=== PATIENT | male | born 1980 | race Caucasian/White ===

== ENCOUNTER 2018-02-16 20:09 | Inpatient (IN) | payer OTHER ==
[2018-02-16 20:58] VITALS: BMI 28.8
--- NOTE | 2018-02-17 00:03 | HP ---
COWS - Scale Resting Pulse: 0= MI 80 or Below Sweatin=Flushed/Facial Moisture Restless Observation: 0= Sits Still Pupil Size: 0= Normal to Room Light Bone or Joint Aches: 4=Acute Joint/Muscle Pain Runny Nose/ Eye Tearin= Runny Nose/Eyes GI Upset > 30mins: 3= Vomiting/Diarrhea (vomiting x 2, diarrhea x 2) Tremor Observation: 2= Slight Tremor Visible Yawning Observation: 1= 1-2x During Session Anxiety or Irritability: 4=Extreme Anxiety Goose Flesh Skin: 0=Smooth Skin COWS Score: 18 Admission [facility] Chief Complaint: Heroin withdrawal symptoms Allergies/Adverse Reactions: Allergies Allergy/AdvReac Type Severity Reaction Status Date / Time divalproex sodium Allergy Verified 02/16/18 23:47 [From Depakote] haloperidol [From Haldol] Allergy Verified 02/16/18 23:47 History of Present Illness: 37 years old male with 10 years of heroin dependence is seeking admission to detox. Patient denies prior detoxification and this is his first admission to [facility]. He has medical history of asthma, seizures, anxiety and depression. He reports that was on methadone program at [facility] but has not been able get his methadone because he relapsed. He was on Methadone 80mg tablet oral and last day medicated was seven days ago. Dose is yet to be confirmed by the nurse and patient states that he was told that he will need to go back to his program for re-evaluation. He reports suicide attempts, last in December 2016 but denies suicidal ideation at this time. Exam Limitations: No Limitations - Ebola screening Have you traveled outside of the country in the last 21 days: No Have you had contact with anyone from an Ebola affected area: No Have you been sick,other than usual withdrawal symptoms: No Do you have a fever: No - Review of Systems Constitutional: No Symptoms Reported, Malaise, Night Sweats, Changes in sleep EENT: reports: Nose Congestion Respiratory: reports: No Symptoms reported Cardiac: reports: No Symptoms Reported GI: reports: Diarrhea, Nausea, Poor Appetite, Poor Fluid Intake, Vomiting : reports: No Symptoms Reported Musculoskeletal: reports: Back Pain, Muscle Pain, Muscle Weakness Integumentary: reports: Dryness, Flushing Neuro: reports: Headache, Tingling, Tremors Endocrine: reports: No Symptoms Reported Hematology: reports: No Symptoms Reported Psychiatric: reports: Orientated x3, Anxious, Depressed Other Systems: Reviewed and Negative Patient History - Patient Medical History Hx Anemia: No Hx Asthma: Yes (Qvar and Albuterol) Hx Chronic Obstructive Pulmonary Disease (COPD): No Hx Cancer: No Hx Cardiac Disorders: No Hx Congestive Heart Failure: No Hx Hypertension: No Hx Hypercholesterolemia: No Hx Pacemaker: No HX Cerebrovascular Accident: No Hx Seizures: Yes (Kepra) Hx Diabetes: No Hx Gastrointestinal Disorders: No Hx Liver Disease: No Hx Genitourinary Disorders: No Hx Sexually Transmitted Disorders: No Hx Renal Disease (ESRD): No Hx Thyroid Disease: No Hx Human Immunodeficiency Virus (HIV): No (Negative 2016) Hx Hepatitis C: No Hx Depression: Yes (Remeron) Hx Suicide Attempt: Yes (Attempt 2016, denies suicidal ideation at tghis time) Hx Bipolar Disorder: Yes ([place]) Hx Schizophrenia: Yes Other Medical History: Anxeity - Patient Surgical History Past Surgical History: No - PPD History Previous Implant?: No (PPD POSITIVE) Implanted On Prior R Admission?: No PPD to be Administered?: No - Reproductive History Patient is a Female of Child Bearing Age (11 -55 yrs old): No (MALE) - Smoking Cessation Smoking history: Current every day smoker Have you smoked in the past 12 months: Yes Aproximately how many cigarettes per day: 20 Hx Chewing Tobacco Use: No Initiated information on smoking cessation: Yes 'Breaking Loose' booklet given: 02/17/18 - Substance & Tx. History Hx Alcohol Use: No Hx Substance Use: Yes Substance Use Type: Cocaine, Heroin, Marijuana Hx Substance Use Treatment: No - Substances Abused Heroin Route: SNIFF Frequency: Daily Amount used: 1 BUNDLE Age of first use: 20 Date of Last Use: 02/16/18 Cocaine Route: Smoking Frequency: Daily Amount used: $100 Age of first use: 18 Date of Last Use: 02/15/18 Marijuana/Hashish Route: Smoking Frequency: Daily Amount used: $10 Age of first use: 14 Date of Last Use: 02/15/18 Family Disease History - Family Disease History Family Disease History: Diabetes: Grandparent, Brother Admission Physical Exam BHS - Vital Signs Vital Signs: Vital Signs - 24 hr 02/16/18 20:43 Temperature 98.7 F Pulse Rate 64 Respiratory 18 Rate Blood Pressure 133/70 - Physical General Appearance: Yes: Moderate Distress HEENTM: Yes: EOMI, Normal ENT Inspection, Normal Voice, JHONNY, Nasal Congestion Respiratory: Yes: Lungs Clear, Normal Breath Sounds, No Respiratory Distress Neck: Yes: Supple Breast: Yes: Breast Exam Deferred Cardiology: Yes: Regular Rhythm, Regular Rate, S1, S2 Abdominal: Yes: Normal Bowel Sounds, Soft Genitourinary: Yes: Within Normal Limits Back: Yes: Normal Inspection Musculoskeletal: Yes: Within Normal Limits Extremities: Yes: Normal Inspection, Normal Range of Motion Neurological: Yes: Alert, Normal Mood/Affect Integumentary: Yes: Warm - Diagnostic (1) Opioid dependence with withdrawal Current Visit: Yes Status: Chronic (2) Seizure Current Visit: Yes Status: Chronic (3) Depression Current Visit: Yes Status: Chronic Qualifiers: Depression Type: unspecified Qualified Code(s): F32.9 - Major depressive disorder, single episode, unspecified (4) Asthma Current Visit: Yes Status: Chronic Qualifiers: Asthma complication type: unspecified (5) Anxiety Current Visit: Yes Status: Chronic (6) Nicotine dependence Current Visit: Yes Status: Chronic Cleared for Admission [facility] - Detox or Rehab [facility] Level of Care: Medically Managed Detox Regimen/Protocol: Methadone [facility] Breath Alcohol Content Breath Alcohol Content: 0 Urine Drug Screen - Results Drug Screen Negative: No Urine Drug Screen Results: THC-Marijuana, JUDIT-Cocaine, OPI-Opiates, AMP- Amphetamines, MTD-Methadone
[2018-02-17] MEDS ORDERED: IBUPROFEN 400 MG TABLET (FP) PO PRN (00:24)
[2018-02-17] MEDS ORDERED: METHADONE HCL 10 MG TABLET (FOR DETOX USE ONLY) PO ONE ×3 (00:24→23:00)
[2018-02-17] MEDS ORDERED: MAGNESIUM CITRATE 300 ML BOTTLE PO PRN (00:24)
[2018-02-17] MEDS ORDERED: MENTHOL/PHENOL 1 EACH UD MM PRN (00:24)
[2018-02-17] MEDS ORDERED: P-EPHED 60MG/TRIPROLIDI 2.5MG TABLET PO PRN (00:24)
[2018-02-17] MEDS ORDERED: guaiFENesin/D-METHORPHAN HB 10 ML UNIT-DOSE CUPS PO PRN (00:24)
[2018-02-17] MEDS ORDERED: MAG HYDROX/AL HYDROX/SIMETH 30 ML UNIT-DOSE CUP PO PRN (00:24)
[2018-02-17] MEDS ORDERED: ACETAMINOPHEN 325 MG TABLET (FP) PO PRN (00:24)
[2018-02-17] MEDS ORDERED: LOPERAMIDE HCL 2 MG CAPSULE PO PRN (00:24)
[2018-02-17] MEDS ORDERED: MAGNESIUM HYDROX 2400MG/30ML ORAL SUSPENSION 30 ML CUP PO PRN (00:24)
[2018-02-17] MEDS ORDERED: NICOTINE POLACRILEX 2 MG GUM BC PRN (00:28)
[2018-02-17] MEDS: diazePAM 5 MG TABLET PO PRN ×3 (01:23→22:14)
[2018-02-17] MEDS: PRENATAL VITAMINS W/ FOLIC ACID TABLET (FP) PO SCH (11:10)
[2018-02-17] MEDS: NICOTINE 14 MG/24 HOURS TOPICAL PATCH TD SCH (11:11)
--- NOTE | 2018-02-17 11:25 | PN ---
BHS Progress Note Note: PT ADMITTED EARLIER TODAY. APPEARS TIRED/SLUGGISH . OOB ENGAGED IN UNIT ROUTINE WITH NO ACUTE DISTRESS. Vital Signs Temperature 96.1 F L 02/17/18 09:20 Pulse Rate 59 L 02/17/18 09:20 Respiratory Rate 18 02/17/18 09:20 Blood Pressure 112/67 02/17/18 09:20 O2 Sat by Pulse Oximetry (%) LABS PENDING CONTINUE DETOX.
--- NOTE | 2018-02-17 11:30 | EKG ---
Test Reason : Blood Pressure : / mmHG Vent. Rate : 048 BPM Atrial Rate : 048 BPM P-R Int : 156 ms QRS Dur : 090 ms QT Int : 438 ms P-R-T Axes : 044 036 018 degrees QTc Int : 391 ms SINUS BRADYCARDIA OTHERWISE NORMAL ECG NO PREVIOUS ECGS AVAILABLE Confirmed by ALEXANDER HAM MD ([id number]) on 02/17/2018 11:30:11 AM Referred By: Confirmed By:ALEXANDER HAM MD
--- NOTE | 2018-02-17 12:14 | CONSULT ---
[facility] Psychiatric Consult - Data Date of interview: 02/17/18 Admission source: [facility] Identifying data: Patient is a 37 year old single male, without kids, unemployed (not receiving financial assistance), and currently homeless. This is patient's first admission to detox. Pt. admitted to for opiate, cocaine, and cannabis dependence. Substance Abuse History: Following information confirmed with Mr. Willingham: Smoking Cessation. Smoking history: Current every day smoker. Have you smoked in the past 12 months: Yes. Aproximately how many cigarettes per day: 20. Hx Chewing Tobacco Use: No. Initiated information on smoking cessation: Yes. ' Breaking Loose' booklet given: 02/17/18. - Substance & Tx. History. Hx Alcohol Use: No. Hx Substance Use: Yes. Substance Use Type: Cocaine, Heroin, Marijuana. Hx Substance Use Treatment: No. - Substances Abused. Heroin. Route: SNIFF. Frequency: Daily. Amount used: 1 BUNDLE. Age of first use: 20. Date of Last Use: 02/16/18. Cocaine. Route: Smoking. Frequency: Daily. Amount used: $100. Age of first use: 18. Date of Last Use: 02/15/18. Marijuana/Hashish. Route: Smoking. Frequency: Daily. Amount used: $10. Age of first use: 14. Date of Last Use: 02/15/18 Medical History: Asthma, Seizures Psychiatric History: Patient reports psychiatric hospitalizations at [facility], [facility], and [facility]. Patient was incarcerated from July 2017 -February 07 for violating his parole. States he was prescribed lithium 600mg BID + Mirtzapine 45mg. Reports last dose was taken approximately seven days ago after he relapse and begun to reuse drugs. Patient reports h/o bipolar disorder. States he was once diagnosed with schizophrenia. Patient reports multiple suicide attempts, but reports last year's suicide attempt of hanging self [place] was the most severe because he had to be resuscitated. Pt. appears depressed but stated he is motivated to get better but needs to overcome the detox process. Patient currently denies suicidal and homicidal ideation. Physical/Sexual Abuse/Trauma History: Denies. Mental Status Exam - Mental Status Exam Alert and Oriented to: Time, Place, Person Cognitive Function: Good Patient Appearance: Unkempt Mood: Withdrawn, Euthymic Affect: Mood Congruent Patient Behavior: Fatigued, Cooperative Speech Pattern: Delayed Voice Loudness: Moderately Soft/Quiet Thought Process: Intact, Goal Oriented Thought Disorder: Not Present Hallucinations: Denies Suicidal Ideation: Denies Homicidal Ideation: Denies Insight/Judgement: Poor Sleep: Fair Appetite: Fair Muscle strength/Tone: Normal Gait/Station: Normal Psychiatric Findings - Problem List ([place] 1, 2,3) (1) Cocaine dependence Current Visit: Yes Status: Acute (2) Nicotine dependence Current Visit: Yes Status: Chronic (3) Opioid dependence with withdrawal Current Visit: Yes Status: Acute (4) Substance induced mood disorder Current Visit: Yes Status: Acute (5) Bipolar disorder Current Visit: Yes Status: Suspected Comment: Self reports. - Initial Treatment Plan Initial Treatment Plan: Psychoeducation provided. Detoxification in progress. [place] level ordered. [place] 300mg BID + Mirtzapine 15mg qhs ordered. Benefits and side effects discussed. Verbal consent given. Labs still pending. Will hold lithium until labs are posted. Will continue to monitor.
[2018-02-17] MEDS ORDERED: MELATONIN 5 MG TABLETS PO PRN (22:00)
[2018-02-17] MEDS: THIAMINE HCL 100 MG TABLET (FP) PO SCH (22:13)
[2018-02-17] MEDS: MIRTAZAPINE 15 MG TABLET (FP) PO SCH (22:13)
[2018-02-18 09:49] LABS: HEMATOCRIT 36.7 % (35.4-49); HEMOGLOBIN 12.9 GM/dL (11.7-16.9); MCH 31.4 pg (25.7-33.7); MEAN CELL VOLUME 89.6 fl (80-96); MEAN PLT VOLUME 7.4 fl (7.5-11.1); PLATELET COUNT 211 K/MM3 (134-434); RDW 14.6 % (11.9-15.9); WHITE BLOOD COUNT 5.6 K/mm3 (4.0-10.0)
[2018-02-18] MEDS ORDERED: METHADONE HCL 10 MG TABLET (FOR DETOX USE ONLY) PO ONE (10:00)
[2018-02-18 10:51] LABS: CHLORIDE 109 mmol/L (98-107); POTASSIUM 3.4 mmol/L (3.5-5.1); SODIUM 143 mmol/L (136-145)
[2018-02-18] MEDS ORDERED: ALBUTEROL SO4 18 GM HFA INHALER IH PRN (10:52)
[2018-02-18 11:01] LABS: ALBUMIN 3.5 g/dl (3.4-5.0); ALK PHOS 64 U/L (45-117); ANION GAP 6 (8-16); BILIRUBIN,TOTAL 0.5 mg/dL (0.2-1.0); BLOOD UREA NITROGEN 9 mg/dL (7-18); CALCIUM 8.7 mg/dL (8.5-10.1); CO2 28 mmol/L (21-32); CREATININE 0.7 mg/dL (0.7-1.3); GLUCOSE,RANDOM 90 mg/dL (74-106); SGOT/AST 16 U/L (15-37); SGPT/ALT 13 U/L (12-78); TOT PROT 6.6 g/dl (6.4-8.2)
[2018-02-18] MEDS: diazePAM 5 MG TABLET PO PRN ×3 (11:24→22:14)
[2018-02-18] MEDS: carBAMazepine 200 MG TABLET PO SCH ×2 (11:24→22:13)
[2018-02-18] MEDS: PRENATAL VITAMINS W/ FOLIC ACID TABLET (FP) PO SCH (11:24)
[2018-02-18] MEDS: NICOTINE 14 MG/24 HOURS TOPICAL PATCH TD SCH (11:25)
[2018-02-18] MEDS ORDERED: levETIRAcetam 250 MG TABLET (FP) PO SCH (11:30)
[2018-02-18] MEDS: GABAPENTIN 400 MG CAPSULE (FP) PO SCH ×2 (12:48→22:14)
--- NOTE | 2018-02-18 13:11 | PN ---
BHS COWS - Scale Resting Pulse: 0= [place] 80 or Below Sweatin=Flushed/Facial Moisture Restless Observation: 3= Extraneous Movement Pupil Size: 2= Moderately Dilated Bone or Joint Aches: 1= Mild Discomfort Runny Nose/ Eye Tearin= Nasal Congestion GI Upset > 30mins: 1= Stomach Cramp Tremor Observation of Outstretched Hands: 2= Slight Tremor Visible Yawning Observation: 0= None Anxiety or Irritability: 2=Irritable/Anxious Goose Flesh Skin: 0=Smooth Skin COWS Score: 14 BHS Progress Note (SOAP) Subjective: IRRITABILITY,SWEATS,ANXIETY,AGITATIONS. PT IS OOB AND AMBULATING WITH STEADY GAIT. PT BECAME AGITATED TODAY STATING HE ISNOT GETTING ALL HIS MEDICATIONS INCLUDING HIGHER DOSE OF METHADONE--I WAS ON 80 MG". PT REPORTS HE WAS AT [facility] AND D/C'D ON 02/07/18. PTWAS REFERRED TO [facility] TO CONTINUE DRUG TX/MMTP BUT DID NOT SHOW UP. PT WAS ACTIVELY USING HEROIN,COCAINE AND MARIJUANA PER INTAKE ASSESSMENT THEREAFTER AND CAME INTO DETOX. SPOKE WITH THE ASST. DIRECTOR OF ADDICTION MEDICINE AT [facility] MS CLAY CARVER(PHONE #: [phone]) RE: PT'S MEDICATIONS WHILE THERE AND UPON DISCHARGE. MS CARVER REPORTS PT WAS WITH THEM FROM 08/01/17 TO 02/07/18. MEDICATIONS: LITHIUM ER 450 MG , TOTAL OF 900 MG AT BEDTIME REMERON 30 MG AT BEDTIME KEPPRA 500 MG TABS PO TWICE A DAY TEGRETOL 200MG TABS, 400MG TWICE A DAY GABAPENTIN 300 MG, TOTAL 1200 MG TWICE A DAY REQUESTED FOR A FAX OF MED LIST BUT UNAVAILABLE AT THIS TIME. ABOVE INFORMATION DISCUSSED WITH DR. ARELLANO RE: PSYCH MEDS. Objective: 02/18/18 13:04 Vital Signs Temperature 95.5 F L 02/18/18 10:04 Pulse Rate 64 02/18/18 10:04 Respiratory Rate 18 02/18/18 10:04 Blood Pressure 101/67 02/18/18 10:04 O2 Sat by Pulse Oximetry (%) Laboratory Tests 02/18/18 02/18/18 02/18/18 07:30 07:30 07:30 WBC 5.6 RBC 4.10 Hgb 12.9 Hct 36.7 MCV 89.6 MCH 31.4 MCHC 35.0 RDW 14.6 Plt Count 211 MPV 7.4 L Sodium 143 Potassium 3.4 L Chloride 109 H Carbon Dioxide 28 Anion Gap 6 L BUN 9 Creatinine 0.7 Creat Clearance w eGFR > 60 Random Glucose 90 Calcium 8.7 Total Bilirubin 0.5 AST 16 ALT 13 Alkaline Phosphatase 64 Total Protein 6.6 Albumin 3.5 RPR Titer Nonreactive Assessment: 02/18/18 13:05 WITHDRAWAL SX Plan: CONTINUE DETOX REOREDERED SEIZURE MEDICATIONS PT ENCOURAGED TO CONTINUE/COMPLETE DETOX TX AND FOLLOW UP AT [facility] FOR AFTERCARE.
--- NOTE | 2018-02-18 13:54 | PN ---
Psychiatric Progress Note Vital Signs: Vital Signs Period Temp Pulse Resp BP Sys/Mead Pulse Ox Last 24 Hr 95.5 F-98.2 F 49-72 - 99-124/55-82 Date of Session: 02/18/18 Chief Complaint:: " I need my medications." HPI: Case of a 37 y/o male admitted to [address] [place] [address] 02/16/18 for detoxification treatment.Substances of abuse : opioid,cocaine and cannabis.Psychiatric follow-up is sought for verification of medications prescribed during patient's incarceration at [facility] (just released). ROS: Mild sedation.Patient is ambulatory.Able to converse coherently with interviewer. Current Medications: Active Medications Generic Name Dose Route Start Last Admin Trade Name Freq PRN Reason Stop Dose Admin Acetaminophen 650 mg 02/17/18 00:24 Tylenol - PO Q4H PRN FEVER Al Hydroxide/Mg Hydroxide 30 ml 02/17/18 00:24 Mylanta Oral Suspension - PO Q6H PRN DYSPEPSIA Albuterol Sulfate 2 puff 02/18/18 10:52 Ventolin Hfa Inhaler - IH QID PRN ASTHMA Carbamazepine 400 mg 02/18/18 11:30 02/18/18 11:24 Tegretol - PO 400 mg BID FLORY Administration Diazepam 10 mg 02/17/18 00:24 02/18/18 11:24 Valium - PO 02/20/18 00:23 10 mg Q4H PRN Administration WITHDRAWAL(CONT SUBST) Eucalyptus/Menthol/Phenol/Sorbitol 1 each 02/17/18 00:24 Cepastat Lozenge - MM Q4H PRN SORE THROAT Gabapentin 1,200 mg 02/18/18 12:45 02/18/18 12:48 Neurontin - PO 1,200 mg BID FLORY Administration Guaifenesin 10 ml 02/17/18 00:24 Robitussin Dm - PO Q6H PRN COUGH Ibuprofen 400 mg 02/17/18 00:24 Motrin - PO Q6H PRN PAIN LEVEL 4-6 Levetiracetam 500 mg 02/18/18 22:00 Keppra - PO BID FLORY Loperamide HCl 4 mg 02/17/18 00:24 Imodium - PO Q6H PRN DIARRHEA Magnesium Citrate 300 ml 02/17/18 00:24 Citroma - PO Q48H PRN CONSTIPATION Magnesium Hydroxide 30 ml 02/17/18 00:24 Milk Of Magnesia - PO DAILY PRN CONSTIPATION Melatonin 5 mg 02/17/18 22:00 Melatonin PO HS PRN INSOMNIA Methadone HCl 15 mg 02/19/18 10:00 Dolophine - PO 02/19/18 10:01 ONCE ONE Methadone HCl 5 mg 02/22/18 06:00 Dolophine - PO 02/22/18 06:01 ONCE@0600 ONE Methadone HCl 15 mg 02/20/18 10:00 Dolophine - PO 02/20/18 10:01 ONCE ONE Methadone HCl 10 mg 02/21/18 10:00 02/17/18 11:11 Dolophine - PO 02/21/18 10:01 10 mg ONCE ONE Administration Mirtazapine 15 mg 02/17/18 22:00 02/17/18 22:13 Remeron - PO 15 mg HS FLORY Administration Nicotine 14 mg 02/17/18 10:00 02/18/18 11:25 Nicoderm Patch - TD Not Given DAILY FLORY Nicotine Polacrilex 2 mg 02/17/18 00:28 Nicorette Gum - BC Q2H PRN NICOTINE REPLACEMENT RX Multivit/Folic Acid/Iron 1 tab 02/17/18 10:00 02/18/18 11:24 Vitamins (Sjr) - PO 1 tab DAILY FLORY Administration Pseudoephedrine/Triprolidine 1 combo 02/17/18 00:24 Actifed - PO TID PRN NASAL CONGESTION Thiamine HCl 100 mg 02/17/18 22:00 02/17/18 22:13 Vitamin B1 - PO 100 mg HS FLORY Administration Medication(s) Change(s): Medications reviewed.Patient is on a combination of three anticonvulsants (gabapentin,levetiracetam,carbamazepine).Mr Willingham has also reported to be on lithium and remeron.Shipper contacted [facility] at .Spoke to Chasity Guevara.Re-directed to General Operations .Shipper reached Dr Ugalde, psychiatry on duty.He confirmed that Mr Willingham has been discharged from [facility] on a regimen consisting of : remeron 30 mg po hs + lithium ER 900 mg po hs + tegretol 400 mg po bid + keppra 500 mg po bid + gabapentin 1200 mg po bid. Current Side Effect: No Lab tests ordered: Yes (tegretol,keppra and lithium levels) Lab tests reviewed: Yes Provider note:: Chart reviewed.Psychiatric nurse practitioner's note (Yue ) : appreciated.Case discussed, in the morning, with the medical nurse practitioner Anton.Met with the patient at bedside.Mr Willingham is found sitting in bed,finishing his lunch.Patient is noted as calm,well related, conversant and cooperative.Appears somewhat tired." I slept much of the morning.That is why I appeared tired to you.I am fine." Sedation remains mild and does not hamper ambulation or communication.Mr Willingham has given his verbal authorization to this insurance writer to contact his psychiatrist at [facility] for information about his medications.He is currently on his familiar regimen and satisfied with this plan of care. Total face to face time:: 35 Mental Status Exam - Mental Status Exam Alert and Oriented to: Time, Place, Person Cognitive Function: Grossly Intact Patient Appearance: Well Groomed Mood: Withdrawn (neutral) Affect: Mood Congruent Patient Behavior: Fatigued, Appropriate, Cooperative Speech Pattern: Clear, Appropriate Voice Loudness: Normal Thought Process: Goal Oriented Thought Disorder: Not Present Hallucinations: Denies Suicidal Ideation: Denies Homicidal Ideation: Denies Insight/Judgement: Fair Sleep: Poorly, Difficulty falling asleep Appetite: Good Muscle strength/Tone: Normal Gait/Station: Normal Psychiatric Treatment Plan - Problem List (1) Opioid dependence with withdrawal Current Visit: Yes (2) Cocaine dependence Current Visit: Yes Qualifiers: Substance use status: uncomplicated Qualified Code(s): F14.20 - Cocaine dependence, uncomplicated (3) Marihuana dependence Current Visit: Yes (4) Nicotine dependence Current Visit: Yes Qualifiers: Nicotine product type: cigarettes Substance use status: in withdrawal Qualified Code(s): F17.213 - Nicotine dependence, cigarettes, with withdrawal (5) Substance induced mood disorder Current Visit: Yes (6) Bipolar disorder Current Visit: Yes Comment: Confirmed.On medications. (7) Insomnia Current Visit: Yes
[2018-02-18] MEDS ORDERED: NICOTINE 14 MG/24 HOURS TOPICAL PATCH TD SCH (17:00)
[2018-02-18] MEDS ORDERED: levETIRAcetam 500 MG TABLET (FP) PO SCH (22:00)
[2018-02-18 22:11] VITALS: BP 118/77; PULSE 68; TEMP 95.8
[2018-02-18] MEDS: THIAMINE HCL 100 MG TABLET (FP) PO SCH (22:13)
[2018-02-18] MEDS: MIRTAZAPINE 15 MG TABLET (FP) PO SCH (22:13)
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
--- NOTE | 2018-02-18 23:12 | DS ---
[facility] Detox Discharge Summary Admission Date: 02/16/18 Discharge Date: 02/18/18 - History Present History: Opioid Dependence Additional Comments: Laboratory Tests 02/18/18 02/18/18 02/18/18 07:30 07:30 07:30 WBC 5.6 RBC 4.10 Hgb 12.9 Hct 36.7 MCV 89.6 MCH 31.4 MCHC 35.0 RDW 14.6 Plt Count 211 MPV 7.4 L Sodium 143 Potassium 3.4 L Chloride 109 H Carbon Dioxide 28 Anion Gap 6 L BUN 9 Creatinine 0.7 Creat Clearance w eGFR > 60 Random Glucose 90 Calcium 8.7 Total Bilirubin 0.5 AST 16 ALT 13 Alkaline Phosphatase 64 Total Protein 6.6 Albumin 3.5 Carbamazepine Carmen RPR Titer Nonreactive 02/18/18 02/18/18 07:30 10:50 WBC RBC Hgb Hct MCV MCH MCHC RDW Plt Count MPV Sodium Potassium Chloride Carbon Dioxide Anion Gap BUN Creatinine Creat Clearance w eGFR Random Glucose Calcium Total Bilirubin AST ALT Alkaline Phosphatase Total Protein Albumin Carbamazepine < 0.5 L* Carmen 0 L RPR Titer Pertinent Past History: BIPOLAR NICOTINE DEP ANXIETY ASTHMA SEIZURE D/O - Physical Exam Results Vital Signs: Vital Signs Temperature 95.8 F L 02/18/18 22:10 Pulse Rate 68 02/18/18 22:10 Respiratory Rate 18 02/18/18 22:10 Blood Pressure 118/77 02/18/18 22:10 O2 Sat by Pulse Oximetry (%) Pertinent Admission Physical Exam Findings: WITHDRAWAL SX'S - Treatment Hospital Course: Discharged Condition Good Patient has Accepted a Rehab Referral to: REFERRED TO [facility] - Medication Discharge Medications: Ambulatory Orders Albuterol Sulfate Inhaler - 2 puff IH QID PRN 02/17/18 Keppra 500 mg PO BID 02/17/18 Mirtazapine [Remeron [DO NOT STOCK]] 45 mg PO HS 02/17/18 Tegretol - 400 mg PO BID 02/17/18 Gabapentin 1,200 mg PO BID 02/18/18 Carmen Carbonate [Eskalith -] 450 mg PO HS 02/18/18 - Diagnosis (1) Cocaine dependence Status: Acute Qualifiers: Substance use status: uncomplicated Qualified Code(s): F14.20 - Cocaine dependence, uncomplicated (2) Insomnia Status: Acute (3) Nicotine dependence Status: Acute Qualifiers: Nicotine product type: cigarettes Substance use status: in withdrawal Qualified Code(s): F17.213 - Nicotine dependence, cigarettes, with withdrawal (4) Opioid dependence with withdrawal Status: Acute (5) Substance induced mood disorder Status: Acute (6) Anxiety Status: Chronic (7) Asthma Status: Chronic Qualifiers: Asthma severity: mild Asthma persistence: unspecified Asthma complication type: uncomplicated Qualified Code(s): J45.909 - Unspecified asthma, uncomplicated (8) Depression Status: Chronic Qualifiers: Depression Type: unspecified Qualified Code(s): F32.9 - Major depressive disorder, single episode, unspecified (9) Seizure Status: Chronic (10) Bipolar disorder Status: Suspected - AMA Did Patient Leave Against Medical Advice: No (SENT TO [facility])
[2018-02-19] MEDS ORDERED: METHADONE HCL 5 MG TABLET (FOR DETOX USE ONLY) PO ONE (10:00)
[2018-02-20] MEDS ORDERED: METHADONE HCL 5 MG TABLET (FOR DETOX USE ONLY) PO ONE (10:00)
[2018-02-21] MEDS ORDERED: METHADONE HCL 10 MG TABLET (FOR DETOX USE ONLY) PO ONE (10:00)
[2018-02-22] MEDS ORDERED: METHADONE HCL 5 MG TABLET (FOR DETOX USE ONLY) PO ONE (06:00)
== END 2018-02-18 23:04 | disposition left against medical advice (07) | DRG 770 ==
LOC: YASAS 20:09 → Y3N 22:56
PROVIDERS: ADMIT Internal Medicine; ATTEND Internal Medicine
PROC: HZ2ZZZZ Detoxification Services for Substance Abuse Treatment (ICD-10-PCS; principal; 2018-02-16)
DX: F11.23 Opioid dependence with withdrawal (principal); F14.20 Cocaine dependence, uncomplicated; F12.20 Cannabis dependence, uncomplicated; F17.210 Nicotine dependence, cigarettes, uncomplicated; F19.24 Other psychoactive substance dependence with psychoactive substance-induced mood disorder; F31.9 Bipolar disorder, unspecified; F41.9 Anxiety disorder, unspecified; G40.909 Epilepsy, unspecified, not intractable, without status epilepticus; G47.00 Insomnia, unspecified; J45.909 Unspecified asthma, uncomplicated; Z91.5 Personal history of self-harm
CPT/HCPCS: 36415; 71046-TC-FY; 80053; 80156; 80178; 85027; 86593; 93005; 93010

== ENCOUNTER 2019-01-11 18:54 | Inpatient (IN) | payer OTHER ==
[2019-01-11 19:16] VITALS: BMI 25.0
--- NOTE | 2019-01-11 22:02 | HP ---
COWS - Scale Resting Pulse: 0= [place] 80 or Below Sweatin=Flushed/Facial Moisture Restless Observation: 1= Difficult to Sit Still Pupil Size: 0= Normal to Room Light Bone or Joint Aches: 4=Acute Joint/Muscle Pain Runny Nose/ Eye Tearin= Runny Nose/Eyes GI Upset > 30mins: 3= Vomiting/Diarrhea (vomiting x 2, no diarrhea) Tremor Observation: 4= Gross Tremor/Twitching Yawning Observation: 0= None Anxiety or Irritability: 2=Irritable/Anxious Goose Flesh Skin: 0=Smooth Skin COWS Score: 18 CIWA Score - Admission Criteria OASAS Guidelines: Admission for Medically Managed Detox: Requires at least one of the followin. CIWA greater than 12 2. Seizures within the past 24 hours 3. Delirium tremens within the past 24 hours 4. Hallucinations within the past 24 hours 5. Acute intervention needed for co occurring medical disorder 6. Acute intervention needed for co occurring psychiatric disorder 7. Severe withdrawal that cannot be handled at a lower level of care (continued vomiting, continued diarrhea, abnormal vital signs) requiring intravenous medication and/or fluids 8. Admission ROS [facility] Chief Complaint: Heroin withdrawal symptoms Allergies/Adverse Reactions: Allergies Allergy/AdvReac Type Severity Reaction Status Date / Time divalproex sodium Allergy Verified 01/11/19 21:30 [From Depakote] haloperidol [From Haldol] Allergy Verified 01/11/19 21:30 History of Present Illness: 38 years old male with a long of heroin dependence is seeking admission to detox. He has medical history of asthma, seizures, anxiety and depression. He reports that he is on 60mg Methadone at [facility]. Dose is yet to be confirmed by the nurse. He reports suicide attempts, last in December 2016 but denies suicidal ideation at this time. Exam Limitations: No Limitations - Ebola screening Have you traveled outside of the country in the last 21 days: No Have you had contact with anyone from an Ebola affected area: No Have you been sick,other than usual withdrawal symptoms: No Do you have a fever: No - Review of Systems Constitutional: Chills, Loss of Appetite, Malaise, Night Sweats, Changes in sleep EENT: reports: Sinus Pressure Respiratory: reports: No Symptoms reported Cardiac: reports: No Symptoms Reported GI: reports: Poor Appetite, Poor Fluid Intake, Vomiting, Abdominal cramping : reports: No Symptoms Reported Musculoskeletal: reports: Back Pain, Muscle Pain Integumentary: reports: Dryness, Flushing Neuro: reports: Tremors Endocrine: reports: No Symptoms Reported Hematology: reports: No Symptoms Reported Psychiatric: reports: Anxious, Depressed Other Systems: Reviewed and Negative Patient History - Patient Medical History Hx Anemia: No Hx Asthma: Yes (Qvar and Albuterol) Hx Chronic Obstructive Pulmonary Disease (COPD): No Hx Cancer: No Hx Cardiac Disorders: No Hx Congestive Heart Failure: No Hx Hypertension: No Hx Hypercholesterolemia: No Hx Pacemaker: No HX Cerebrovascular Accident: No Hx Seizures: Yes ([place]) Hx Diabetes: No Hx Gastrointestinal Disorders: No Hx Liver Disease: No Hx Genitourinary Disorders: No Hx Sexually Transmitted Disorders: No Hx Renal Disease (ESRD): No Hx Thyroid Disease: No Hx Human Immunodeficiency Virus (HIV): No (Negative 2016) Hx Hepatitis C: No Hx Depression: Yes ([place]) Hx Suicide Attempt: Yes (Attempt 2016, denies suicidal ideation at this time) Hx Bipolar Disorder: Yes ([place]) Hx Schizophrenia: Yes - Patient Surgical History Past Surgical History: No - PPD History Previous Implant?: Yes Documented Results: Positive w/proof Implanted On Prior [facility] Admission?: Yes PPD to be Administered?: Yes - Reproductive History Patient is a Female of Child Bearing Age (11 -55 yrs old): No (Male) - Smoking Cessation Smoking history: Current every day smoker Have you smoked in the past 12 months: Yes Aproximately how many cigarettes per day: 20 Hx Chewing Tobacco Use: No Initiated information on smoking cessation: Yes 'Breaking Loose' booklet given: 01/11/19 - Substance & Tx. History Hx Alcohol Use: No Hx Substance Use: Yes Substance Use Type: Cocaine, Heroin, Marijuana, Opiates Hx Substance Use Treatment: Yes ([facility]) - Substances Abused Heroin Route: Injection Frequency: Daily Amount used: 15 bags Age of first use: 38 Date of Last Use: 01/10/19 Family Disease History - Family Disease History Family Disease History: Diabetes: Grandparent, Brother Admission Physical Exam BHS - Vital Signs Vital Signs: Vital Signs - 24 hr 01/11/19 19:14 Temperature 97.8 F Pulse Rate 60 Respiratory 18 Rate Blood Pressure 123/72 - Physical General Appearance: Yes: Moderate Distress, Tremorous, Irritable, Sweating, Anxious HEENTM: Yes: EOMI, Normal ENT Inspection, Normal Voice, JHONNY Respiratory: Yes: Lungs Clear, Normal Breath Sounds, No Respiratory Distress Neck: Yes: Supple Breast: Yes: Breast Exam Deferred Cardiology: Yes: Regular Rhythm, Regular Rate Abdominal: Yes: Normal Bowel Sounds Genitourinary: Yes: Within Normal Limits Back: Yes: Normal Inspection Musculoskeletal: Yes: Back pain, Muscle Pain Extremities: Yes: Tremors Neurological: Yes: Alert, Normal Mood/Affect Integumentary: Yes: Warm Lymphatic: Yes: Within Normal Limits - Diagnostic (1) Cocaine dependence Current Visit: Yes Status: Acute Qualifiers: Substance use status: uncomplicated Qualified Code(s): F14.20 - Cocaine dependence, uncomplicated (2) Marihuana dependence Current Visit: Yes Status: Chronic (3) Nicotine dependence Current Visit: Yes Status: Chronic Qualifiers: Nicotine product type: cigarettes Substance use status: uncomplicated Qualified Code(s): F17.210 - Nicotine dependence, cigarettes, uncomplicated (4) Opioid dependence with withdrawal Current Visit: Yes Status: Chronic (5) Anxiety Current Visit: Yes Status: Chronic (6) Asthma Current Visit: Yes Status: Chronic Qualifiers: Asthma severity: mild Asthma persistence: unspecified Asthma complication type: uncomplicated Qualified Code(s): J45.909 - Unspecified asthma, uncomplicated (7) Depression Current Visit: Yes Status: Chronic Qualifiers: Depression Type: unspecified Qualified Code(s): F32.9 - Major depressive disorder, single episode, unspecified (8) Seizure Current Visit: No Status: Chronic Cleared for Admission [facility] - Detox or Rehab [facility] Level of Care: Medically Managed Detox Regimen/Protocol: Librium [facility] Breath Alcohol Content Breath Alcohol Content: 0 Urine Drug Screen - Results Drug Screen Negative: No Urine Drug Screen Results: THC-Marijuana, JUDIT-Cocaine, OPI-Opiates, MTD- Methadone, FEN-Fentanyl Inpatient Rehab Admission - Rehab Decision to Admit Inpatient rehab admission?: No
[2019-01-11] MEDS ORDERED: MAG HYDROX/AL HYDROX/SIMETH 30 ML UNIT-DOSE CUP PO PRN (22:17)
[2019-01-11] MEDS ORDERED: MENTHOL/PHENOL 1 EACH UD MM PRN (22:17)
[2019-01-11] MEDS ORDERED: NICOTINE POLACRILEX 2 MG GUM BUC PRN (22:17)
[2019-01-11] MEDS ORDERED: MAGNESIUM CITRATE 300 ML BOTTLE PO PRN (22:17)
[2019-01-11] MEDS ORDERED: hydrOXYzine PAMOATE 25 MG CAPSULE (FP) PO PRN (22:17)
[2019-01-11] MEDS ORDERED: BISMUTH SUBSALICYLATE 524 MG/30 ML UD PO PRN (22:17)
[2019-01-11] MEDS ORDERED: cloNIDine HCL 0.1 MG TABLET PO PRN (22:17)
[2019-01-11] MEDS ORDERED: METHOCARBAMOL 500 MG TABLET PO PRN (22:17)
[2019-01-11] MEDS ORDERED: MAGNESIUM HYDROX 2400MG/30ML ORAL SUSPENSION 30 ML CUP PO PRN (22:17)
[2019-01-11] MEDS ORDERED: ACETAMINOPHEN 325 MG TABLET (FP) PO PRN ×2 (22:17)
[2019-01-11] MEDS ORDERED: ALBUTEROL SO4 8 GM HFA INHALER IH PRN (22:18)
[2019-01-11] MEDS ORDERED: METHADONE HCL 10 MG TABLET (FOR DETOX USE ONLY) PO ONE (23:00)
[2019-01-11] MEDS: levETIRAcetam 500 MG TABLET (FP) PO SCH (23:04)
[2019-01-12] MEDS ORDERED: METHADONE HCL 10 MG TABLET (FOR DETOX USE ONLY) PO ONE (10:00)
--- NOTE | 2019-01-12 10:21 | PN ---
BHS COWS - Scale Resting Pulse: 0= [place] 80 or Below Sweatin=Flushed/Facial Moisture Restless Observation: 1= Difficult to Sit Still Pupil Size: 0= Normal to Room Light Bone or Joint Aches: 2= Severe Diffuse Aches Runny Nose/ Eye Tearin= Runny Nose/Eyes GI Upset > 30mins: 0= None Tremor Observation of Outstretched Hands: 2= Slight Tremor Visible Yawning Observation: 2= >3x During Session Anxiety or Irritability: 2=Irritable/Anxious Goose Flesh Skin: 0=Smooth Skin COWS Score: 13 BHS Progress Note (SOAP) Subjective: sweats shakes interrupted sleep body aches anxiety restless Objective: 01/12/19 10:20 Vital Signs Temperature 97.9 F 01/12/19 09:35 Pulse Rate 51 L 01/12/19 09:35 Respiratory Rate 18 01/12/19 09:35 Blood Pressure 116/64 01/12/19 09:35 O2 Sat by Pulse Oximetry (%) labs pending aaox3 ambulating no acute distress Assessment: 01/12/19 10:21 withdrawal sx Plan: continue detox increase fluids labs pending
[2019-01-12 10:40] LABS: HEMATOCRIT 39.3 % (35.4-49); HEMOGLOBIN 12.8 GM/dL (11.7-16.9); MCH 29.1 pg (25.7-33.7); MCHC 32.6 g/dl (32.0-35.9); MEAN CELL VOLUME 89.3 fl (80-96); MEAN PLT VOLUME 7.5 fl (7.5-11.1); PLATELET COUNT 213 K/MM3 (134-434); RDW 14.6 % (11.9-15.9)
[2019-01-12 10:57] LABS: ALBUMIN 3.3 g/dl (3.4-5.0); ALK PHOS 66 U/L (45-117); ANION GAP 6 MMOL/L (8-16); BILIRUBIN,TOTAL 0.4 mg/dL (0.2-1); BLOOD UREA NITROGEN 14 mg/dL (7-18); CALCIUM 8.6 mg/dL (8.5-10.1); CHLORIDE 104 mmol/L (98-107); CO2 26 mmol/L (21-32); CREATININE 0.7 mg/dL (0.55-1.3); GLUCOSE,RANDOM 93 mg/dL (74-106); POTASSIUM 4.4 mmol/L (3.5-5.1); SGOT/AST 17 U/L (15-37); SGPT/ALT 11 U/L (13-61); SODIUM 137 mmol/L (136-145); TOT PROT 7.1 g/dl (6.4-8.2)
[2019-01-12] MEDS: levETIRAcetam 500 MG TABLET (FP) PO SCH ×2 (11:05→23:15)
[2019-01-12] MEDS: NICOTINE 14 MG/24 HOURS TOPICAL PATCH TD SCH (11:05)
[2019-01-12] MEDS: PRENATAL VITAMINS W/ FOLIC ACID TABLET (FP) PO SCH (11:05)
[2019-01-12] MEDS ORDERED: cloNIDine HCL 0.1 MG TABLET PO PRN (18:29)
[2019-01-12] MEDS: clonazePAM 0.5 MG TABLET PO PRN (18:55)
[2019-01-12] MEDS: hydrOXYzine PAMOATE 25 MG CAPSULE (FP) PO PRN (23:15)
[2019-01-12] MEDS: THIAMINE HCL 100 MG TABLET (FP) PO SCH (23:16)
[2019-01-13] MEDS ORDERED: METHADONE HCL 10 MG TABLET (FOR DETOX USE ONLY) PO ONE (10:00)
[2019-01-13] MEDS: PRENATAL VITAMINS W/ FOLIC ACID TABLET (FP) PO SCH (10:50)
[2019-01-13] MEDS: levETIRAcetam 500 MG TABLET (FP) PO SCH ×2 (10:50→23:00)
[2019-01-13] MEDS: NICOTINE 14 MG/24 HOURS TOPICAL PATCH TD SCH (10:51)
--- NOTE | 2019-01-13 12:35 | PN ---
BHS COWS - Scale Resting Pulse: 0= [place] 80 or Below Sweatin=Flushed/Facial Moisture Restless Observation: 1= Difficult to Sit Still Pupil Size: 0= Normal to Room Light Bone or Joint Aches: 2= Severe Diffuse Aches Runny Nose/ Eye Tearin= Nasal Congestion GI Upset > 30mins: 0= None Tremor Observation of Outstretched Hands: 1= Tremor [place], Not Seen Yawning Observation: 2= >3x During Session Anxiety or Irritability: 2=Irritable/Anxious Goose Flesh Skin: 0=Smooth Skin COWS Score: 11 BHS Progress Note (SOAP) Subjective: sweats shakes interrupted sleep agitation Objective: 01/13/19 12:34 Vital Signs Temperature 98.1 F 01/13/19 10:05 Pulse Rate 50 L 01/13/19 10:05 Respiratory Rate 18 01/13/19 10:05 Blood Pressure 96/54 L 01/13/19 10:05 O2 Sat by Pulse Oximetry (%) Laboratory Tests 01/12/19 01/12/19 01/12/19 07:00 07:00 07:00 WBC 5.0 RBC 4.40 Hgb 12.8 Hct 39.3 MCV 89.3 MCH 29.1 MCHC 32.6 RDW 14.6 Plt Count 213 MPV 7.5 Sodium 137 Potassium 4.4 Chloride 104 Carbon Dioxide 26 Anion Gap 6 L BUN 14 Creatinine 0.7 Creat Clearance w eGFR 126.21 Random Glucose 93 Calcium 8.6 Total Bilirubin 0.4 AST 17 ALT 11 L Alkaline Phosphatase 66 Total Protein 7.1 Albumin 3.3 L RPR Titer HIV 1&2 Antibody Screen Negative HIV P24 Antigen Negative 01/12/19 07:00 WBC RBC Hgb Hct MCV MCH MCHC RDW Plt Count MPV Sodium Potassium Chloride Carbon Dioxide Anion Gap BUN Creatinine Creat Clearance w eGFR Random Glucose Calcium Total Bilirubin AST ALT Alkaline Phosphatase Total Protein Albumin RPR Titer Nonreactive HIV 1&2 Antibody Screen HIV P24 Antigen aaox3 ambulating no acute distress Assessment: 01/13/19 12:34 withdrawal sx Plan: continue detox increase fluids
[2019-01-13] MEDS: IBUPROFEN 400 MG TABLET (FP) PO PRN (13:41)
[2019-01-13] MEDS: THIAMINE HCL 100 MG TABLET (FP) PO SCH (23:00)
[2019-01-13] MEDS: MELATONIN 5 MG TABLETS PO PRN (23:01)
[2019-01-14] MEDS ORDERED: METHADONE HCL 10 MG TABLET (FOR DETOX USE ONLY) PO ONE (10:00)
[2019-01-14] MEDS: PRENATAL VITAMINS W/ FOLIC ACID TABLET (FP) PO SCH (11:12)
[2019-01-14] MEDS: levETIRAcetam 500 MG TABLET (FP) PO SCH ×2 (11:12→21:15)
[2019-01-14] MEDS: NICOTINE 14 MG/24 HOURS TOPICAL PATCH TD SCH (11:13)
--- NOTE | 2019-01-14 14:00 | PN ---
BHS Progress Note (SOAP) Subjective: Back pain, sweats and tremors, interrupted sleep Objective: 01/14/19 13:59 Vital Signs 01/14/19 01/14/19 08:31 09:44 Temperature 97.9 F 97.9 F Pulse Rate 50 L 59 L Respiratory 18 18 Rate Blood Pressure 122/77 104/58 L Laboratory Last Values WBC 5.0 K/mm3 (4.0-10.0) 01/12/19 07:00 RBC 4.40 M/mm3 (4.00-5.60) 01/12/19 07:00 Hgb 12.8 GM/dL (11.7-16.9) 01/12/19 07:00 Hct 39.3 % (35.4-49) 01/12/19 07:00 MCV 89.3 fl (80-96) 01/12/19 07:00 MCH 29.1 pg (25.7-33.7) 01/12/19 07:00 MCHC 32.6 g/dl (32.0-35.9) 01/12/19 07:00 RDW 14.6 % (11.9-15.9) 01/12/19 07:00 Plt Count 213 K/MM3 (134-434) 01/12/19 07:00 MPV 7.5 fl (7.5-11.1) 01/12/19 07:00 Sodium 137 mmol/L (136-145) 01/12/19 07:00 Potassium 4.4 mmol/L (3.5-5.1) 01/12/19 07:00 Chloride 104 mmol/L (98-107) 01/12/19 07:00 Carbon Dioxide 26 mmol/L (21-32) 01/12/19 07:00 Anion Gap 6 MMOL/L (8-16) L 01/12/19 07:00 BUN 14 mg/dL (7-18) 01/12/19 07:00 Creatinine 0.7 mg/dL (0.55-1.3) 01/12/19 07:00 Creat Clearance w eGFR 126.21 (>60) 01/12/19 07:00 Random Glucose 93 mg/dL (74-106) 01/12/19 07:00 Calcium 8.6 mg/dL (8.5-10.1) 01/12/19 07:00 Total Bilirubin 0.4 mg/dL (0.2-1) 01/12/19 07:00 AST 17 U/L (15-37) 01/12/19 07:00 ALT 11 U/L (13-61) L 01/12/19 07:00 Alkaline Phosphatase 66 U/L (45-117) 01/12/19 07:00 Total Protein 7.1 g/dl (6.4-8.2) 01/12/19 07:00 Albumin 3.3 g/dl (3.4-5.0) L 01/12/19 07:00 RPR Titer Nonreactive (NONREACTIVE) 01/12/19 07:00 HIV 1&2 Antibody Screen Negative 01/12/19 07:00 HIV P24 Antigen Negative 01/12/19 07:00 Labs noted Assessment: 01/14/19 14:00 Withdrawal sx Plan: Continue detox
[2019-01-14] MEDS: clonazePAM 0.5 MG TABLET PO PRN (20:10)
[2019-01-14] MEDS ORDERED: diazePAM 5 MG TABLET PO PRN (21:07)
[2019-01-14] MEDS: THIAMINE HCL 100 MG TABLET (FP) PO SCH (21:15)
[2019-01-14] MEDS: IBUPROFEN 400 MG TABLET (FP) PO PRN (21:16)
[2019-01-14] MEDS: hydrOXYzine PAMOATE 25 MG CAPSULE (FP) PO PRN (21:16)
[2019-01-14] MEDS: MELATONIN 5 MG TABLETS PO PRN (21:17)
--- NOTE | 2019-01-14 22:21 | PN ---
[facility] Progress Note Note: CLIENT REQUESTING TO SIGN OUT. C/O RESTLESSNESS, INCREASING ANXIETY, BODY ACHES. STATES KLONOPIN IS NOT RESOLVING HIS SX'S. REQUESTING VALIUM. REPORTS IT HAS HELPED WITH REPORTED SX'S ON PAST ADMISSIONS. A/O X3 IRRITABLE, ANXIOUS, YELLING Vital Signs - 24 hr 01/14/19 01/14/19 01/14/19 08:31 09:44 14:00 Temperature 97.9 F 97.9 F 97.9 F Pulse Rate 50 L 59 L 51 L Respiratory 18 18 16 Rate Blood Pressure 122/77 104/58 L 130/79 01/14/19 01/14/19 17:51 22:28 Temperature 97.9 F 98.1 F Pulse Rate 48 L 63 Respiratory 16 19 Rate Blood Pressure 103/52 L 120/68 A- WITHDRAWAL SX'S P- DC KLONOPIN GIVEN VALIUM 10 MG PO NOW AND Q 4H PRN X3 DOSES. PLAN DISCUSSED WITH CLIENT . CLIENT AGREES AND WILL CONTINUE DETOX. CONT TO MONITOR CLINICALLY
[2019-01-15] MEDS ORDERED: METHADONE HCL 5 MG TABLET (FOR DETOX USE ONLY) PO ONE (06:00)
[2019-01-15 08:03] VITALS: TEMP 97.5
--- NOTE | 2019-01-15 09:38 | DS ---
[facility] Detox Discharge Summary Admission Date: 01/11/19 Discharge Date: 01/15/19 - History Present History: Cannabis Dependence, Cocaine Dependence, Opioid Dependence - Physical Exam Results Vital Signs: Vital Signs Temperature 97.5 F L 01/15/19 08:03 Pulse Rate 53 L 01/15/19 08:03 Respiratory Rate 18 01/15/19 08:03 Blood Pressure 105/54 L 01/15/19 08:03 O2 Sat by Pulse Oximetry (%) - Treatment Hospital Course: Detox Protocol Followed, Detoxed Safely, Responded well, Discharged Condition Good, Rehab Referral Accepted - Diagnosis (1) Cocaine dependence Current Visit: Yes Status: Chronic Qualifiers: Substance use status: uncomplicated Qualified Code(s): F14.20 - Cocaine dependence, uncomplicated (2) Anxiety Current Visit: Yes Status: Chronic (3) Asthma Current Visit: Yes Status: Chronic Qualifiers: Asthma severity: mild Asthma persistence: unspecified Asthma complication type: uncomplicated Qualified Code(s): J45.909 - Unspecified asthma, uncomplicated (4) Depression Current Visit: Yes Status: Chronic Qualifiers: Depression Type: unspecified Qualified Code(s): F32.9 - Major depressive disorder, single episode, unspecified (5) Nicotine dependence Current Visit: Yes Status: Chronic Qualifiers: Nicotine product type: cigarettes Substance use status: uncomplicated Qualified Code(s): F17.210 - Nicotine dependence, cigarettes, uncomplicated (6) Opioid dependence with withdrawal Current Visit: Yes Status: Chronic (7) Insomnia Current Visit: No Status: Acute (8) Substance induced mood disorder Current Visit: No Status: Acute (9) Seizure Current Visit: No Status: Chronic (10) Bipolar disorder Current Visit: No Status: Suspected Qualifiers: Active/Remission status: in full remission - AMA Did Patient Leave Against Medical Advice: No (going back to correction.)
[2019-01-15] MEDS: levETIRAcetam 500 MG TABLET (FP) PO SCH (09:39)
[2019-01-15] MEDS: PRENATAL VITAMINS W/ FOLIC ACID TABLET (FP) PO SCH (09:39)
[2019-01-15 10:01] VITALS: BP 101/64; PULSE 80
== END 2019-01-15 09:57 | disposition home or self-care (01) | DRG 773 ==
LOC: YASAS 18:54 → Y6N 22:28
PROVIDERS: ADMIT Surgery; ATTEND Surgery
PROC: HZ2ZZZZ Detoxification Services for Substance Abuse Treatment (ICD-10-PCS; principal; 2019-01-11)
DX: F11.23 Opioid dependence with withdrawal (principal); F14.20 Cocaine dependence, uncomplicated; F12.20 Cannabis dependence, uncomplicated; F17.210 Nicotine dependence, cigarettes, uncomplicated; F41.9 Anxiety disorder, unspecified; F32.9 Major depressive disorder, single episode, unspecified; F31.70 Bipolar disorder, currently in remission, most recent episode unspecified; J45.909 Unspecified asthma, uncomplicated; G47.00 Insomnia, unspecified; G40.909 Epilepsy, unspecified, not intractable, without status epilepticus; Z91.5 Personal history of self-harm; Z59.0 Homelessness
CPT/HCPCS: 36415; 80053; 85027; 86593; 87389; J0735